=== PATIENT | male | born 1980 | race Caucasian/White ===

== ENCOUNTER 2016-12-03 12:04 | Emergency (ER) | payer OTHER ==
[~2016-12-03] VITALS: Ht 180.3 cm; Wt 84.0 kg
[~2016-12-03 12:04] MED LIST: BUPR-83 PO
[2016-12-03 12:10] VITALS: TEMP 37.1; Ht 180.3 cm; Wt 84.0 kg
[2016-12-03 13:00] LABS: BASO % 0.3 %; BASO ABS # 0.02 K/uL (0-0.2); COMPLETE YES; EOS % 0.7 %; HEMATOCRIT 41.1 % (42-52); IG% 0.1 %; LYMPH % 14.6 %; LYMPH ABS # 1.04 K/uL (1.2-3.4); MEAN CELL VOLUME 89.9 fL (80-100); MEAN CORPUSCULAR HEMOGLOBIN 31.5 pg (25-34); MONO % 7.5 %; NEUT % 76.8 %; PLATELET COUNT 268 K/uL (130-400); RED BLOOD COUNT 4.57 M/uL (4.7-6.1); WHITE BLOOD COUNT 7.11 K/uL (4.8-10.8)
[2016-12-03] MEDS ORDERED: VANCOMYCIN 1GM/270ML NSS IV STA (13:02)
[2016-12-03] MEDS ORDERED: VANCOMYCIN INJ 2,000 MG in SODIUM CHLORIDE 0.9% 500ML 500 ML IV STA (13:05)
[2016-12-03] MEDS ORDERED: SULF800T23 PO (13:10)
[2016-12-03 13:18] LABS: BUN/CREATININE RATIO 13.2 (10-20); CALCIUM 8.9 mg/dl (8.5-10.1); CREATININE 1.1 mg/dl (0.60-1.40); POTASSIUM 4.6 mmol/L (3.5-5.1)
--- NOTE | 2016-12-03 13:23 | DIAGNOSTIC IMAGING REPORT ---
RIGHT KNEE 2 VIEWS HISTORY: Right knee pain. ? Knee effusion Right COMPARISON: None. FINDINGS: There is no fracture or dislocation. Mild anterior soft tissue swelling. Suspect a trace knee effusion. Cartilage spaces are maintained for age. No radiopaque foreign bodies. IMPRESSION: 1. Anterior soft tissue swelling within the right knee. 2. Suspect a trace knee effusion. Electronically signed by: Raffy Wiggins M.D. 12/03/2016 1:21 PM Dictated Date/Time: 12/03/2016 1:20 PM
--- NOTE | 2016-12-03 14:49 | EMERGENCY ROOM VISIT NOTE ---
History Report prepared by Nadira: Halle Estrada Under the Supervision of: Dr. Coy Vigil D.O. First contact with patient: 12:29 Chief Complaint: KNEEPAIN Stated Complaint: RASH History of Present Illness The patient is a 35 year old male who presents to the Emergency Room with complaints of worsening right knee pain starting 3 days ago. Last week, the patient remembers feeling his knee pop. Three days ago the knee started to become painful and red. Yesterday the redness had spread down his leg to his toes. He started taking Bactrim yesterday. The redness has improved, but the leg has become more painful. This morning he felt some instability of the knee. He states the quality of the pain has changed from a pressure to tenderness. He has pain with movement of the joint now. He cannot recall any scrapes. He has had tick bites before. He has a history of prepatellar bursitis. Source of History: patient Onset: 3 days ago Position: knee (right) Quality: other (pain) Timing: worsening Modifying Factors (Worsening): movement Note: Pt reports redness in the knee and leg, instability of the knee. Review of Systems See HPI for pertinent positives & negatives. A total of 10 systems reviewed and were otherwise negative. Past Medical & Surgical Medical Problems: (1) Prepatellar bursitis Family History No pertinent family history stated. Social History Smoking Status: Never Smoker Marital Status: single Occupation Status: employed Current/Historical Medications Scheduled Sulfa/Trimethoprim (Bactrim Ds 800MG/160MG), 1 TAB PO BID Allergies Coded Allergies: No Known Allergies (Verified Allergy, Mild, 10/09/07) Physical Exam Vital Signs Date Time Temp Pulse Resp B/P Pulse Ox O2 Delivery O2 Flow Rate FiO2 12/03/16 14:03 60 16 153/77 100 12/03/16 12:10 37.1 75 16 167/83 100 Physical Exam CONSTITUTIONAL/VITAL SIGNS: Reviewed / noted above. GENERAL: Non-toxic in appearance. INTEGUMENTARY: Warm, dry, and [place] [address] [place]. HEAD: Normocephalic. EYES: without scleral icterus or trauma. ENT/OROPHARYNX: clear and moist. LYMPHADENOPATHY/NECK: Is supple without lymphadenopathy or meningismus. RESPIRATORY: Lungs clear and equal. CARDIOVASCULAR: Regular rate and rhythm. GI/ABDOMEN: Soft and nontender. No organomegaly or pulsatile mass. No rebound or guarding. Normal bowel sounds. EXTREMITIES: Increased warmth as well as tenderness and swelling in the anterior tibial region, mid and upper portions. Soft tissue swelling noted in the right knee area anteriorly. No obvious effusion. Good distal pulses. No abnormalities in the posterior calf or knee. BACK: No CVA tenderness. NEUROLOGICAL: Intact without focal deficits. PSYCHIATRIC: normal affect. MUSCULOSKELETAL: Normally developed with good muscle tone. Medical Decision & Procedures ER Provider Diagnostic Interpretation: X ray results and stated below per my interpretation and radiology interpretation. RIGHT KNEE 2 VIEWS HISTORY: Right knee pain. ? Knee effusion Right COMPARISON: None. FINDINGS: There is no fracture or dislocation. Mild anterior soft tissue swelling. Suspect a trace knee effusion. Cartilage spaces are maintained for age. No radiopaque foreign bodies. IMPRESSION: 1. Anterior soft tissue swelling within the right knee. 2. Suspect a trace knee effusion. Electronically signed by: Raffy Wiggins M.D. 12/03/2016 1:21 PM Dictated Date/Time: 12/03/2016 1:20 PM Laboratory Results 12/03/16 12:50 Red Blood Count 4.57, Mean Corpuscular Volume 89.9, Mean Corpuscular Hemoglobin 31.5, Mean Corpuscular Hemoglobin Concent 35.0, Mean Platelet Volume 9.0, Neutrophils (%) (Auto) 76.8, Lymphocytes (%) (Auto) 14.6, Monocytes (%) (Auto) 7.5, Eosinophils (%) (Auto) 0.7, Basophils (%) (Auto) 0.3, Neutrophils # (Auto) 5.46, Lymphocytes # (Auto) 1.04, Monocytes # (Auto) 0.53, Eosinophils # (Auto) 0.05, Basophils # (Auto) 0.02 12/03/16 12:50 Test 12/03/16 12:50 White Blood Count 7.11 K/uL (4.8-10.8) Red Blood Count 4.57 M/uL (4.7-6.1) Hemoglobin 14.4 g/dL (14.0-18.0) Hematocrit 41.1 % (42-52) Mean Corpuscular Volume 89.9 fL (80-100) Mean Corpuscular Hemoglobin 31.5 pg (25-34) Mean Corpuscular Hemoglobin Concent 35.0 g/dl (32-36) Platelet Count 268 K/uL (130-400) Mean Platelet Volume 9.0 fL (7.4-10.4) Neutrophils (%) (Auto) 76.8 % Lymphocytes (%) (Auto) 14.6 % Monocytes (%) (Auto) 7.5 % Eosinophils (%) (Auto) 0.7 % Basophils (%) (Auto) 0.3 % Neutrophils # (Auto) 5.46 K/uL (1.4-6.5) Lymphocytes # (Auto) 1.04 K/uL (1.2-3.4) Monocytes # (Auto) 0.53 K/uL (0.11-0.59) Eosinophils # (Auto) 0.05 K/uL (0-0.5) Basophils # (Auto) 0.02 K/uL (0-0.2) RDW Standard Deviation 40.9 fL (36.4-46.3) RDW Coefficient of Variation 12.5 % (11.5-14.5) Immature Granulocyte % (Auto) 0.1 % Immature Granulocyte # (Auto) 0.01 K/uL (0.00-0.02) Anion Gap 5.0 mmol/L (3-11) Est Creatinine Clear Calc Drug Dose 100.7 ml/min Estimated GFR () 101.0 Estimated GFR (Non- 87.1 BUN/Creatinine Ratio 13.2 (10-20) Calcium Level 8.9 mg/dl (8.5-10.1) Lyme Disease IgM Antibody NEG (NEG) Laboratory results as stated above per my review. Medications Administered Medications (Trade) Dose Ordered Sig/Farooq Route Start Time Stop Time Status Last Admin Dose Admin Vancomycin HCl/ Sodium Chloride (Vancomycin Inj/ Nss 500ml) 540 ml @ 200 mls/hr NOW STAT IV 12/03/16 13:05 12/03/16 15:46 12/03/16 13:23 200 MLS/HR ED Course 1238: Previous medical records were reviewed. The patient was evaluated in room C8. A complete history and physical examination was performed. 1305: Vancomycin HCl 2000 mg/Sodium Chloride 540 ml @ 200 mls/hr IV. 1425: On reevaluation, the patient is resting comfortably. I discussed the results and findings with the patient. He verbalized agreement of the treatment plan. He was discharged home. Medical Decision Differential diagnoses: infection, noninfectious inflammatory process, trauma. This is a 35-year-old male who presents to the ED with a chief complaint of right leg discomfort, redness and swelling. The patient's symptoms started yesterday. He started taking Bactrim then as well. His primary area of complaint is the right knee and right proximal anterior tibia. There is soft tissue swelling as well as erythema and increased warmth in the proximal tibia and right knee. No clear cut effusion. X-ray did not show an effusion. It showed soft tissue swelling. Distally he is neurovascularly intact. No obvious nidus for the infection. The patient states that the Bactrim has improved his symptoms somewhat. He denies any specific trauma. 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 The patient was given IV vancomycin. CBC and PRP were unremarkable. Lyme test was negative. The patient was told the results. He is felt to be stable for discharge. He will continue Bactrim. Impression Primary Impression: Cellulitis of leg, right Scribe Attestation The scribe's documentation has been prepared under my direction and personally reviewed by me in its entirety. I confirm that the note above accurately reflects all work, treatment, procedures, and medical decision making performed by me. Departure Information Dispostion Home / Self-Care Referrals No Doctor, Assigned (PCP) Forms HOME CARE DOCUMENTATION FORM, IMPORTANT VISIT INFORMATION, Work Instructions Specific Date : December 05, 2016 Patient Instructions Cellulitis [facility] Additional Instructions Continue Bactrim. Elevate leg to help swelling. Tylenol / Motrin as needed for pain. Return for any concerns or worsening. See your doctor for recheck in 2 days. CBC and PRP were normal. Lyme test was negative.
[2016-12-03 16:03] VITALS: BP 112/75; PULSE 53; O2SAT 100
== END 2016-12-03 16:37 | disposition home or self-care (01) ==
LOC: C.EDC 12:05
DX: L03.115 Cellulitis of right lower limb (principal); M70.40 Prepatellar bursitis, unspecified knee; Z86.14 Personal history of Methicillin resistant Staphylococcus aureus infection

== ENCOUNTER → 2016-12-07 | Outpatient (CLI) | payer OTHER ==
[~2016-12-07] MED LIST changes: -BUPR-83 PO; +IBUP-1050 PO; +MULT-506 PO; +SULF800T23 PO; +VNTHFA/IN INH
[2016-12-07 13:13] LABS: SYNOVIAL FLUID APPEARANCE CLOUDY; SYNOVIAL FLUID COLOR AMBER; SYNOVIAL FLUID MONONUC RELAT 86.7 %; SYNOVIAL FLUID POLYNUC RELAT 13.3 %
== END | disposition home or self-care (01) ==
LOC: C.LABSPEC 12:04
PROVIDERS: ATTEND Internal Medicine
DX: M25.461 Effusion, right knee (principal)

== ENCOUNTER → 2016-12-17 | Outpatient (CLI) | payer OTHER ==
--- NOTE | 2016-12-18 07:03 | DIAGNOSTIC IMAGING REPORT ---
RIGHT TIBIA/FIBULA 2 VIEWS ROUTINE CLINICAL HISTORY: Right lower extremity cellulitis. COMPARISON: Right knee radiographs December 03, 2016. FINDINGS: No fracture within the right tibia or fibula is identified. There is no radiographic evidence of osteomyelitis. Sclerotic foci projecting over the distal right tibia are likely benign and of doubtful significance. There is mild soft tissue swelling overlying anterior mid shaft of the right tibia. No radiopaque foreign bodies are identified. IMPRESSION: No acute fracture or evidence of osteomyelitis within the right tibia or fibula. Electronically signed by: Raj Walker M.D. 12/18/2016 7:02 AM Dictated Date/Time: 12/18/2016 7:00 AM
--- NOTE | 2016-12-18 07:07 | DIAGNOSTIC IMAGING REPORT ---
ULTRASOUND RIGHT LOWER EXTREMITY VENOUS CLINICAL HISTORY: Right leg pain and swelling. COMPARISON STUDY: No priors. TECHNIQUE: Real-time, grayscale, and color Doppler sonography of the deep veins of the right lower extremity was performed from the inguinal crease to the calf. Compression and augmentation were utilized. FINDINGS: There is no sonographic evidence of deep venous thrombosis identified in the right lower extremity. The common femoral, superficial femoral, and popliteal veins are patent and normally compressible. The greater saphenous vein and the profunda femoris vein at the junction with the common femoral vein are clear. The visualized calf veins are patent. Prominent right inguinal lymph nodes are incidentally noted. There is mild prepatellar soft tissue edema. A small knee joint effusion is suspected. IMPRESSION: There is no sonographic evidence of deep venous thrombosis identified in the right lower extremity. Electronically signed by: Danilo Serna M.D. 12/18/2016 7:05 AM Dictated Date/Time: 12/18/2016 7:04 AM
== END | disposition home or self-care (01) ==
LOC: C.ULTR 21:28
PROVIDERS: ATTEND Internal Medicine
DX: L03.116 Cellulitis of left lower limb (principal); M25.461 Effusion, right knee

== ENCOUNTER → 2016-12-18 | Outpatient (CLI) | payer OTHER ==
[2016-12-18 14:27] LABS: BASO % 0.8 %; BASO ABS # 0.04 K/uL (0-0.2); COMPLETE YES; EOS % 1.6 %; HEMATOCRIT 40.8 % (42-52); LYMPH % 31.8 %; LYMPH ABS # 1.55 K/uL (1.2-3.4); MEAN CELL VOLUME 92.1 fL (80-100); MEAN CORPUSCULAR HEMOGLOBIN 31.8 pg (25-34); MEAN CORPUSCULAR HGB CONC 34.6 g/dl (32-36); MEAN PLATELET VOLUME 9.5 fL (7.4-10.4); MONO % 9.9 %; NEUT % 55.9 %; PLATELET COUNT 317 K/uL (130-400); RED BLOOD COUNT 4.43 M/uL (4.7-6.1); WHITE BLOOD COUNT 4.87 K/uL (4.8-10.8)
[2016-12-18 15:43] LABS: LYME DISEASE AB IGG NEG (NEG); LYME DISEASE AB IGM NEG (NEG)
== END | disposition home or self-care (01) ==
LOC: C.LAB 13:50
PROVIDERS: ATTEND Internal Medicine
DX: M25.461 Effusion, right knee (principal)

== ENCOUNTER 2017-01-10 11:40 | Emergency (ER) | payer OTHER ==
[~2017-01-10] VITALS: Ht 182.9 cm; Wt 90.0 kg
[~2017-01-10 11:40] MED LIST changes: -IBUP-1050 PO; -MULT-506 PO; -VNTHFA/IN INH
[2017-01-10 11:46] VITALS: TEMP 36.8; Ht 182.9 cm; Wt 90.0 kg
[2017-01-10] MEDS ORDERED: IBUP-1050 PO (12:33)
[2017-01-10] MEDS ORDERED: VNTHFA/IN INH (12:33)
[2017-01-10] MEDS ORDERED: MULT-506 PO (12:33)
[2017-01-10 13:14] LABS: BASO % 0.9 %; BASO ABS # 0.04 K/uL (0-0.2); COMPLETE YES; EOS % 0.9 %; HEMATOCRIT 43.3 % (42-52); LYMPH % 33.4 %; LYMPH ABS # 1.44 K/uL (1.2-3.4); MEAN CELL VOLUME 92.7 fL (80-100); MEAN CORPUSCULAR HEMOGLOBIN 31.7 pg (25-34); MEAN CORPUSCULAR HGB CONC 34.2 g/dl (32-36); MEAN PLATELET VOLUME 9.4 fL (7.4-10.4); NEUT % 57.8 %; PLATELET COUNT 276 K/uL (130-400); RED BLOOD COUNT 4.67 M/uL (4.7-6.1); WHITE BLOOD COUNT 4.31 K/uL (4.8-10.8)
[2017-01-10 13:24] LABS: PARTIAL THROMBOPLASTIN RATIO 1.1; PROTHROMBIN TIME (PATIENT) 10.3 SECONDS (9.0-12.0)
[2017-01-10 13:27] LABS: SYNOVIAL FLUID APPEARANCE BLOODY; SYNOVIAL FLUID COLOR RED; SYNOVIAL FLUID MONONUC RELAT 60.9 %; SYNOVIAL FLUID POLYNUC RELAT 39.1 %
[2017-01-10 13:32] LABS: BUN/CREATININE RATIO 18.2 (10-20); C-REACTIVE PROTEIN 0.56 mg/dl (0-0.29); CALCIUM 8.5 mg/dl (8.5-10.1); CREATININE 0.97 mg/dl (0.60-1.40); POTASSIUM 4.4 mmol/L (3.5-5.1)
[2017-01-10] MEDS ORDERED: CEFAZOLIN IV 2,000 MG in DEXTROSE 5% 50ML 50 ML IV ONE (13:45)
[2017-01-10] MEDS ORDERED: SULF800T23 PO (14:22)
[2017-01-10 14:46] VITALS: BP 142/100; PULSE 62; O2SAT 100
--- NOTE | 2017-01-10 21:05 | EMERGENCY ROOM VISIT NOTE ---
History First contact with patient: 11:50 Chief Complaint: KNEEPAIN Stated Complaint: RIGHT KNEE PAIN History of Present Illness The patient is a 36 year old white male who presents to the Emergency Room with complaints of right knee swelling and associated right leg swelling that has been present in some fashion for the last 5 weeks. 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 He denies any specific trauma to his knee. In early November he noticed some swelling around the front of the knee. It became fairly large. He developed some associated redness and was diagnosed with cellulitis. He was given oral antibiotics but the cellulitis progressed. He was then given IV vancomycin and additional oral antibiotics. His prepatellar bursa was also aspirated. He states the redness improved and the swelling decreased. It has gradually returned. At this point he is having stiffness of the knee. He denies any known fevers, chills, or sweats. He states he just does not feel well. He has an upcoming wedding in 7 days and is concerned that his knee will become worse and interfere with his wedding plans. No specific trauma to the knee. He previously had an ultrasound of the leg due to the swelling, and rule out DVT. X-rays have been obtained. He has an appointment to see Dr. Bundy on Thursday but is concerned that he cannot wait. Review of Systems REVIEW OF SYSTEM: HEENT: No dizziness, visual problems, hearing loss, or tinnitus. There is no difficulty swallowing and no oral lesions are present. PULMONARY: No cough, shortness of breath, sputum production or hemoptysis. CARDIOVASCULAR: No chest pain, palpitations, shortness of breath or peripheral edema. GASTROINTESTINAL: No diarrhea, constipation, nausea, vomiting, or abdominal pain. GENITOURINARY: No dysuria, frequency, urgency or nocturia. NEUROLOGIC: No weakness, muscle tenderness, epilepsy or history of neurological problems. MUSCULOSKELETAL: No history of joint tenderness/swelling. No history of arthritis or arthralgias. SKIN: No rashes or lesions. ENDOCRINE: No history of diabetes, thyroid disorders, or abnormal hair growth. Past Medical/Surgical History Medical Problems: (1) Prepatellar bursitis Family History Noncontributory. Social History Smoking Status: Never Smoker Smokeless Tobacco Use: No Drug Use: none Marital Status: in relationship Occupation Status: employed Current/Historical Medications Scheduled Ibuprofen (Advil), 200-600 MG PO Q4H Multivitamin (Multivitamin), 1 TAB PO DAILY Sulfa/Trimethoprim (Bactrim Ds 800MG/160MG), 1 TAB PO BID Scheduled PRN Albuterol Hfa (Ventolin Hfa), 2-4 PUFFS INH Q6H PRN for SOB/Wheezing Allergies Coded Allergies: No Known Allergies (Verified , 01/10/17) Physical Exam Vital Signs Date Time Temp Pulse Resp B/P Pulse Ox O2 Delivery O2 Flow Rate FiO2 01/10/17 14:46 62 16 142/100 100 Room Air 01/10/17 11:46 36.8 75 18 165/86 100 Room Air Pain Rating (0-10): 2.0 Physical Exam Gen.: Well-developed, well-nourished, young white male, in no acute distress. Obvious discomfort. Sitting on a bed. Alert and oriented. Skin:Warm and dry with good turgor. No rashes or lesions. No ecchymosis. The patient is not diaphoretic. No abrasions. Mild redness present diffusely across the leg. It is warm to touch. He has 1+ edema over the distal thigh. There is 2+ edema diffusely across the lower leg both anteriorly, medial, and laterally. He has a very large prepatellar effusion. It is not intra-articular. Fluid is able to milked from the subcutaneous tissue of the lower leg and pushed back towards the bursa. There is a fluid wave present. Bursa is mildly tender to touch. Musculoskeletal: Patient has stable cruciate ligaments. No pain with stressing of the collaterals. They're also stable. Full terminal extension. Flexion to greater than 90. Strength is 5/5 with good quad tone. He is able to perform straight leg raise. There is discomfort with palpation over the distal IT band. Intact patellar tendon and quadriceps tendon palpable through the bursal effusion. Intact motor function to the ankle. No discomfort with palpation of his gastroc. Neurologic: Gross sensation is intact across the right leg by soft touch. Peripheral pulses are 2+. Medical Decision & Procedures Laboratory Results 01/10/17 13:00 Red Blood Count 4.67, Mean Corpuscular Volume 92.7, Mean Corpuscular Hemoglobin 31.7, Mean Corpuscular Hemoglobin Concent 34.2, Mean Platelet Volume 9.4, Neutrophils (%) (Auto) 57.8, Lymphocytes (%) (Auto) 33.4, Monocytes (%) (Auto) 7.0, Eosinophils (%) (Auto) 0.9, Basophils (%) (Auto) 0.9, Neutrophils # (Auto) 2.49, Lymphocytes # (Auto) 1.44, Monocytes # (Auto) 0.30, Eosinophils # (Auto) 0.04, Basophils # (Auto) 0.04 01/10/17 13:00 Test 01/10/17 12:18 01/10/17 13:00 Synovial Fluid Source KNEE Synovial Fluid Color RED Synovial Fluid Appearance BLOODY Synovial Fluid WBC 880 /uL (0-200) Synovial Fluid RBC 008037 /uL Synovial Fluid Polynuclear WBCs % 39.1 % Synovial Fluid Mononuclear WBCs % 60.9 % White Blood Count 4.31 K/uL (4.8-10.8) Red Blood Count 4.67 M/uL (4.7-6.1) Hemoglobin 14.8 g/dL (14.0-18.0) Hematocrit 43.3 % (42-52) Mean Corpuscular Volume 92.7 fL (80-100) Mean Corpuscular Hemoglobin 31.7 pg (25-34) Mean Corpuscular Hemoglobin Concent 34.2 g/dl (32-36) Platelet Count 276 K/uL (130-400) Mean Platelet Volume 9.4 fL (7.4-10.4) Neutrophils (%) (Auto) 57.8 % Lymphocytes (%) (Auto) 33.4 % Monocytes (%) (Auto) 7.0 % Eosinophils (%) (Auto) 0.9 % Basophils (%) (Auto) 0.9 % Neutrophils # (Auto) 2.49 K/uL (1.4-6.5) Lymphocytes # (Auto) 1.44 K/uL (1.2-3.4) Monocytes # (Auto) 0.30 K/uL (0.11-0.59) Eosinophils # (Auto) 0.04 K/uL (0-0.5) Basophils # (Auto) 0.04 K/uL (0-0.2) RDW Standard Deviation 43.2 fL (36.4-46.3) RDW Coefficient of Variation 12.7 % (11.5-14.5) Immature Granulocyte % (Auto) 0.0 % Immature Granulocyte # (Auto) 0.00 K/uL (0.00-0.02) Erythrocyte Sedimentation Rate 7 mm/hr (0-14) Prothrombin Time 10.3 SECONDS (9.0-12.0) Prothromb Time International Ratio 1.0 (0.9-1.1) Activated Partial Thromboplast Time 27.5 SECONDS (21.0-31.0) Partial Thromboplastin Ratio 1.1 Anion Gap 5.0 mmol/L (3-11) Est Creatinine Clear Calc Drug Dose 116.7 ml/min Estimated GFR () 116.7 Estimated GFR (Non- 100.7 BUN/Creatinine Ratio 18.2 (10-20) Calcium Level 8.5 mg/dl (8.5-10.1) C-Reactive Protein 0.56 mg/dl (0-0.29) CBC, PRP, C-reactive protein, and sedimentation rate were obtained. C-reactive protein was elevated at 0.56. All others were unremarkable. Bursal fluid was sent for cell count with differential, anaerobic and anaerobic cultures, Gram stain, and crystal analysis. Medications Administered Medications (Trade) Dose Ordered Sig/Farooq Route Start Time Stop Time Status Last Admin Dose Admin Cefazolin Sodium/ Dextrose (Ancef Iv/D5 50ml) 60 ml @ 100 mls/hr ONE ONCE IV 01/10/17 13:45 01/10/17 14:20 DC 01/10/17 13:53 100 MLS/HR Ancef 2 g IV Procedure Right knee was cleansed with Betadine 2 and alcohol swabs 2. Ethyl chloride spray was used to anesthetize the skin. An 18-gauge needle was used to aspirate 112 mL of bloody bursal fluid. It was almost fully decompressed. Sterile gauze bandage was applied. Compression dressing was also applied. ED Course Patient was educated regarding today's findings. Conservative care measures were discussed. Possibility of infectious bursitis was discussed. Bursal aspiration was discussed. This is extra-articular and not intra-articular. Patient was in agreement. Aspiration was performed as listed above. Pressure dressing was applied. He was given a knee immobilizer and should remain in this at all times other than bathing. Crutches were given and crutch instruction was reviewed. Weight-bear as tolerated with the knee immobilizer. Follow-up with Dr. Bundy on Thursday as scheduled. His knee may require additional aspiration. At this point I do not think infectious per situs is likely. He was covered with Ancef 2 g IV and oral Bactrim as a precaution until final cultures are reported. I did speak with Dr. Salmon regarding this patient. He did recommend aspiration, bursal fluid analysis, knee immobilization, and follow-up, as well as the antibiotic regimen. Return to the ED for any other concerns. Tylenol and Motrin every 6 hours as needed for mild discomfort. Note was provided to be off work for the next 3 days. 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 Medical Decision Possibility of intra-articular effusion, extra-articular effusion, hemorrhagic bursitis, infectious bursitis, traumatic bursitis, abscess, tendon rupture, and internal derangement were all considered. Impression Primary Impression: Hemorrhagic prepatellar bursitis of right knee Departure Information Dispostion Home / Self-Care Condition GOOD Prescriptions Sulfa/Trimethoprim (Bactrim Ds 800MG/160MG) Tab 1 TAB PO BID, #20 TAB Prov: Baltazar Ohara,P.A. 01/10/17 Referrals Carlos Bundy M.D. Forms HOME CARE DOCUMENTATION FORM, MOTRIN USE, TYLENOL USE, Work Instructions, Specific Date: off work 01/10, 01/11,01/12 IMPORTANT VISIT INFORMATION Patient Instructions My [facility] [employer] Additional Instructions Keep the compression stocking on at all times other than bathing Use the knee immobilizer at all times other than bathing Weight-bear as tolerated using crutches follow-up with Dr. Bundy on Thursday for reexamination Tylenol and Motrin every 6 hours with food Bactrim 1 pill twice a day 10 days Return to the ED for any acute worsening of symptoms Ice to the knee intermittently to reduce pain and swelling Work Instructions Specific Date: off work 01/10, 01/11,01/12
== END 2017-01-10 14:50 | disposition home or self-care (01) ==
LOC: C.EDB 11:41
DX: M70.41 Prepatellar bursitis, right knee (principal)

== ENCOUNTER 2017-09-24 13:06 | Emergency (ER) | payer OTHER ==
[~2017-09-24] VITALS: Ht 182.9 cm; Wt 90.0 kg
[~2017-09-24 13:06] MED LIST changes: +IBUP-1050 PO; +MULT-506 PO; -SULF800T23 PO; +VNTHFA/IN INH
[2017-09-24 13:14] VITALS: BP 131/78; PULSE 71; TEMP 36.6; O2SAT 99; Ht 182.9 cm; Wt 90.0 kg
--- NOTE | 2017-09-24 13:25 | EMERGENCY ROOM VISIT NOTE ---
ED Visit Note First contact with patient: 13:17 Chief Complaint: "Finger pain". History of Present Illness: This patient is a 36-year-old male who presents to the Emergency Department via private vehicle for evaluation of their right second digit laceration. Patient sustained the laceration while exiting a patient room, when he accidentally struck it against the door. They report a minimal amount of bleeding initially. They report no decreased range of motion of the affected digit. Patient rates his current discomfort as a 0/10. Patient's Tetanus status unknown. Medications: As noted below Allergies: None PMH: No pertinent SHx: Patient is employed and lives locally. ROS: All pertinent positive and negative review of systems are appropriately documented in the History of Present Illness. Physical Exam: VITAL SIGNS - Vital signs and nursing notes were reviewed. Stable. GENERAL -36-year-old male appearing his stated age who is in no acute distress. Communicates well with provider and answers questions appropriately. SKIN - There is a 1 cm U-shaped laceration noted over the dorsal aspect of the patient's right second digit. The edges gape apart with traction. No foreign bodies appreciated. Upon further examination there are no deep structures including vessel, tendon, or bony structures appreciated. MUSCULOSKELETAL - Laceration as described above. +5/5 strength appreciated of the affected digit. Full range of motion of the affected digit. NEUROLOGIC - Spinothalamic tract was found to be intact with ability to discriminate sharp versus dull sensation. No sensory defects of the dorsal column were appreciated utilizing light touch for evaluation. VASCULAR - Capillary refill was brisk. ED Course: Patient was seen and evaluated by myself. He presents with an injury to his right second digit. I was able to care for the wound shortly after the incident happened. The region was cleansed by the patient. The region was then dried, and I applied Dermabond with the patient's finger in full extension. Bleeding persisted. Finger tourniquet was applied and more Dermabond. A pressure dressing was then applied with a nonstick dressing and Coban. He tolerated the procedure well. No complications were met. Patient was educated upon management, educated upon worrisome symptoms in which to return, had questions about discharge and was discharged in good condition. History this immunization was updated. In the evaluation and treatment of this patient, the following differential diagnoses were considered: Finger Fracture, Finger Dislocation, Finger Sprain, Finger Contusion, Jersey Finger, or Mallet Finger. Problem List Medical Problems: (1) Prepatellar bursitis Status: Chronic Current/Historical Medications Scheduled Ibuprofen (Advil), 200-600 MG PO Q4H Multivitamin (Multivitamin), 1 TAB PO DAILY Scheduled PRN Albuterol Hfa (Ventolin Hfa), 2-4 PUFFS INH Q6H PRN for SOB/Wheezing Allergies Coded Allergies: No Known Allergies (Verified , 01/10/17) Vital Signs Date Time Temp Pulse Resp B/P (MAP) Pulse Ox O2 Delivery O2 Flow Rate FiO2 09/24/17 13:14 36.6 71 18 131/78 99 Room Air Medications Administered Medications (Trade) Dose Ordered Sig/Farooq Route Start Time Stop Time Status Last Admin Dose Admin Diphtheria/ Pertussis/Tetanus Vacc (Adacel Inj) 0.5 ml ONCE ONCE IM. 09/24/17 13:30 09/24/17 13:31 DC 09/24/17 13:42 0.5 ML Departure Information Impression Primary Impression: Finger laceration Dispostion Home / Self-Care Condition GOOD Referrals Mayito Dunlap M.D. (PCP) Patient Instructions My [facility] Additional Instructions Discharge Instructions: Dermabond will fall off over time Keep coban and dressing on for 24 hrs. Then keep dressed for 7 days Proper wound care is essential for adequate wound healing and infection prevention. You can shower and clean the wound with soap and water. Do not scour over the wound, pat dry with a towel. Look for signs of infection of the wound including: increased pain, swelling, foul discharge, streaking, or increased temperature. If any of these are noticed you should return to the Emergency Department for further assessment and treatment. As with any laceration you may have received nerve damage to the surrounding tissues. This damage may or may not be permanent. For pain control, you can use the following [id number] medicines - Regular strength (325mg/tab) Tylenol (acetaminophen) 2 tabs every 4-6 hours as needed. Do not exceed 12 tablets in a 24 hour period. Avoid taking more than 3 grams (3000 mg) of Tylenol per day. This includes any other sources of acetaminophen you may take on a regular basis. - Regular strength (200 mg/tab) Advil (ibuprofen) 1-2 tabs every 4-6 hours as needed. Do not exceed a dose of 3200 mg per day. Return to the emergency department if your symptoms worsen despite treatment course outlined above.
[2017-09-24] MEDS ORDERED: DIPHTHERIA/TETANUS/PERTUSSIS 0.5 ML SYR/VIAL IM. ONE (13:30)
== END 2017-09-24 13:43 | disposition home or self-care (01) ==
LOC: C.EDB 13:08 → C.EDD 13:43
DX: S61.210A Laceration without foreign body of right index finger without damage to nail, initial encounter (principal); W22.8XXA Striking against or struck by other objects, initial encounter; Z23 Encounter for immunization